=== PATIENT | male | born 1975 | race Caucasian/White ===

== ENCOUNTER 2018-04-09 18:24 | Emergency (ER) | payer SELFPAY ==
[~2018-04-09] VITALS: Ht 188 cm; Wt 160.1 kg
[~2018-04-09 18:24] MED LIST: ALEVE220 MG PO; NOHOMEMEDS
[2018-04-09 19:21] LABS: HEMOGLOBIN 14.8 G/DL (12.5-16.6); MCH 29.5 PG (29.0-34.0); MCHC 34.4 G/DL (30.0-36.0); MCV 85.8 FL (86-99); NRBC (%) 0.1 /100 WBC (0-0); PLATELET COUNT 265 K/uL (156-360); RBC DIS.WIDTH-CV 13.3 % (11.8-14.6); RBC DIS.WIDTH-SD 41.3 % (39-53); RED BLOOD COUNT 5.01 M/uL (4.00-5.50); WHITE BLOOD COUNT 15.4 K/uL (4.1-10.2)
[2018-04-09 19:29] LABS: ALBUMIN 4.3 g/dL (3.2-4.8); CHLORIDE 102 mEq/L (99-109); POTASSIUM 3.7 mEq/L (3.7-5.4); SODIUM 139 mEq/L (136-147)
[2018-04-09 19:31] LABS: GLUCOSE 139 mg/dL (70-99)
[2018-04-09 19:32] LABS: TOTAL PROTEIN 7.9 g/dL (6.4-8.3)
[2018-04-09 19:33] LABS: TOTAL BILIRUBIN 0.4 mg/dL (0.0-1.0)
[2018-04-09 19:35] LABS: ALKALINE PHOSPHATASE 70 IU/L (3-129); CREATININE 1.2 mg/dL (0.6-1.3); GFR ESTIMATE (CALCULATED) > 59 mL/min/ (58.99-99999)
[2018-04-09 19:36] LABS: UREA NITROGEN (BUN) 16 mg/dL (9-23)
[2018-04-09 19:37] LABS: AST (GOT) 19 IU/L (2-34)
[2018-04-09 19:38] LABS: ALT (GPT) 25 IU/L (3-49)
[2018-04-09 20:35] LABS: APPEARANCE CLEAR ((CLEAR)); BILIRUBIN NEGATIVE; BLOOD LARGE; COLOR YELLOW ((YELLOW)); GLUCOSE (STRIP) NEGATIVE; KETONES NEGATIVE; LEUKOCYTES NEGATIVE; NITRITE NEGATIVE; PROTEIN (STRIP) 30; SPECIFIC GRAVITY 1.016 (1.000-1.030); UROBILINOGEN 0.2 MG/DL (0.2-1.0)
[2018-04-09 21:00] LABS: BACTERIA 1+ /HPF; EPITHELIAL CELLS NONE SEEN /HPF; MUCUS NONE SEEN /LPF; UCUL ADDED? NO; WHITE BLOOD CELLS 0-5 /HPF (0-5)
[2018-04-09] MEDS ORDERED: CIPRO500 MG PO (21:17)
[2018-04-09] MEDS ORDERED: ZOFRAN ODT4 MG PO (21:17)
[2018-04-09] MEDS ORDERED: FLOMAX0.4 MG PO (21:17)
[2018-04-09] MEDS ORDERED: NORCO 5/3251 TABLET PO (21:17)
[2018-04-09 22:04] VITALS: BP 181/121
== END 2018-04-09 22:05 | disposition home or self-care (01) ==
LOC: EME 18:24
PROVIDERS: Physician Assistant Medical
DX: N20.0 Calculus of kidney (principal); I25.10 Atherosclerotic heart disease of native coronary artery without angina pectoris; K76.0 Fatty (change of) liver, not elsewhere classified; K42.9 Umbilical hernia without obstruction or gangrene; Z87.442 Personal history of urinary calculi; Z88.1 Allergy status to other antibiotic agents
CPT/HCPCS: 74176; 80053; 81003; 85027; 87086; 99281; 99285; J1885; J2405; J7030